=== PATIENT | female | born 1940 ===

== ENCOUNTER 2018-05-26 13:07 | Outpatient (CLI) | payer OTHER ==
[~2018-05-26 13:07] MED LIST: DICLOFENAC SODI50 MG PO; MELOXICAM7.5 MG PO; TORADOL60 MG IM
== END 2018-05-26 15:47 | disposition home or self-care (01) ==
LOC: RAD 13:07
DX: M12.9 Arthropathy, unspecified (principal); M19.90 Unspecified osteoarthritis, unspecified site

== ENCOUNTER 2018-06-11 18:07 | Emergency (ER) | payer OTHER ==
[~2018-06-11] VITALS: Ht 154.9 cm; Wt 49.9 kg
[2018-06-11] MEDS ORDERED: ASPIR 8181 MG (18:27)
[2018-06-11] MEDS ORDERED: ATENOLOL100 MG (18:27)
== END 2018-06-12 01:15 | disposition home or self-care (01) ==
LOC: ER 18:07 → CPU-OBS 18:09 → ER 18:09
DX: R07.89 Other chest pain (principal)

== ENCOUNTER 2019-08-24 07:37 | Outpatient (CLI) | payer OTHER ==
[~2019-08-24 07:37] MED LIST changes: +ASPIR 8181 MG; +ATENOLOL100 MG
== END 2019-08-24 07:44 | disposition home or self-care (01) ==
LOC: RAD 07:37 → MAMO-SONO 07:45
DX: R10.84 Generalized abdominal pain (principal); M12.88 Other specific arthropathies, not elsewhere classified, other specified site